=== PATIENT | male | born 1960 | race Native Hawaiian/Other Pacific Islander ===

== ENCOUNTER 2019-11-28 13:10 | Inpatient (IN) | payer OTHER ==
[~2019-11-28] VITALS: Ht 177.8 cm; Wt 66.8 kg
[2019-11-28 14:24] VITALS: BP 170/61; TEMP 98.5; Ht 177.8 cm; Wt 66.8 kg
[2019-11-28 14:27] LABS: PLATELET COUNT 340 K/uL (142-355)
[2019-11-28 14:39] LABS: POTASSIUM 3.1 mmol/L (3.6-5.2)
[2019-11-28] MEDS ORDERED: GAS RELIEF125 M1 PO (14:51)
[2019-11-28] MEDS ORDERED: CVS OMEPRAZOLE20 MG PO (14:52)
[2019-11-28] MEDS ORDERED: BENADRYL ALLERG25 MG PO (14:52)
[2019-11-28] MEDS ORDERED: ACET-689 PO (14:53)
[2019-11-28 16:00] VITALS: BP 141/75; TEMP 98.9
[2019-11-28 20:00] VITALS: BP 130/68; TEMP 99.1
[2019-11-29] VITALS: BP 103/55; TEMP 98.8
[2019-11-29 03:36] VITALS: BP 131/74; TEMP 98.9
[2019-11-29 05:58] LABS: PLATELET COUNT 259 K/uL (142-355)
[2019-11-29 06:18] LABS: POTASSIUM 3.7 mmol/L (3.6-5.2)
[2019-11-29 08:00] VITALS: BP 119/69; TEMP 97.3
[2019-11-29 12:00] VITALS: BP 115/65; TEMP 97.6
== END 2019-11-29 12:25 | disposition short-term general hospital (02) | DRG 699 ==
LOC: MED/SURG 13:10
PROVIDERS: ADMIT Family Medicine
DX: T83.89XA Other specified complication of genitourinary prosthetic devices, implants and grafts, initial encounter (principal); N10 Acute pyelonephritis; N30.01 Acute cystitis with hematuria; R59.0 Localized enlarged lymph nodes; Z93.6 Other artificial openings of urinary tract status; R53.83 Other fatigue; D72.829 Elevated white blood cell count, unspecified; E55.9 Vitamin D deficiency, unspecified; E53.8 Deficiency of other specified B group vitamins; F17.200 Nicotine dependence, unspecified, uncomplicated; Z85.51 Personal history of malignant neoplasm of bladder; Z76.89 Persons encountering health services in other specified circumstances; D72.828 Other elevated white blood cell count
CPT/HCPCS: 36415; 80053; 81000; 83605; 83735; 83880; 84100; 85027; 87040; 87070; 87086; 87088; 87205; J2175; J2543

== ENCOUNTER 2019-11-29 12:34 | Outpatient (CLI) | payer OTHER ==
[~2019-11-29 12:34] MED LIST: ACET-689 PO; BENADRYL ALLERG25 MG PO; CVS OMEPRAZOLE20 MG PO; GAS RELIEF125 M1 PO
== END 2019-11-29 13:52 | disposition short-term general hospital (02) ==
LOC: AMB 12:34
DX: N10 Acute pyelonephritis (principal); D72.829 Elevated white blood cell count, unspecified; N18.9 Chronic kidney disease, unspecified; R63.4 Abnormal weight loss
CPT/HCPCS: A0425; A0429

== ENCOUNTER 2020-01-03 14:33 | Outpatient (CLI) | payer OTHER ==
[2020-01-03 14:57] LABS: PLATELET COUNT 214 K/uL (142-355)
[2020-01-03 15:21] LABS: POTASSIUM 3.8 mmol/L (3.6-5.2)
--- NOTE | 2020-01-05 16:59 | NUR ---
SPOKE WITH DR. CLEMENTE. REPORTED PT'S LAB RESULTS AT HIS REQUEST.
== END 2020-01-03 19:25 | disposition home or self-care (01) ==
LOC: LABW 14:33
DX: N13.0 Hydronephrosis with ureteropelvic junction obstruction (principal); N13.30 Unspecified hydronephrosis; C67.8 Malignant neoplasm of overlapping sites of bladder; N18.4 Chronic kidney disease, stage 4 (severe); N39.0 Urinary tract infection, site not specified
CPT/HCPCS: 36415; 80053; 82306; 82607; 82728; 82746; 83540; 83550; 83970; 84100; 85027

== ENCOUNTER 2020-03-22 14:22 | Outpatient (CLI) | payer OTHER ==
[2020-03-22 14:49] LABS: PLATELET COUNT 255 K/uL (142-355)
[2020-03-22 15:04] LABS: POTASSIUM 3.4 mmol/L (3.6-5.2)
== END 2020-03-22 23:09 | disposition home or self-care (01) ==
LOC: LABW 14:22
PROVIDERS: Nurse Practitioner Family
DX: N13.39 Other hydronephrosis (principal); R10.9 Unspecified abdominal pain; R63.4 Abnormal weight loss; N13.0 Hydronephrosis with ureteropelvic junction obstruction; Z85.51 Personal history of malignant neoplasm of bladder
CPT/HCPCS: 36415; 80053; 85027